=== PATIENT | female | born 1960 | race Caucasian/White ===

== ENCOUNTER 2018-04-06 18:09 | Observation (INO) | payer MEDICAID ==
[~2018-04-06] VITALS: Ht 162.6 cm; Wt 57.4 kg
[2018-04-06 18:53] LABS: EOS # 0.1 (0.04-0.40); EOS % 1.1 % (1.0-5.0); HEMOGLOBIN 14.3 g/dL (12.5-16.0); MEAN CELL VOLUME 91 fl (78-100); MEAN CORPUSCULAR HEMOGLOBIN 32 pg (27-31); MEAN CORPUSCULAR HGB CONC 36 g/dL (33-37); MEAN PLATELET VOLUME 10.4 fl (7.4-10.4); NEU # 5.6 (1.40-6.50); PLATELET COUNT 397 K/mm3 (130-400); RED BLOOD COUNT 4.42 M/mm3 (4.10-5.30); RED CELL DISTRIBUTION WIDTH 12.8 % (11.5-14.5); WHITE BLOOD COUNT 9.7 K/mm3 (4.8-10.8)
[2018-04-06 19:05] LABS: POTASSIUM 3.3 mmol/L (3.6-5.0)
[2018-04-06] MEDS ORDERED: DESYREL50 MG (19:05)
[2018-04-06 19:06] LABS: CALCIUM 9.9 mg/dL (8.4-10.2)
[2018-04-06] MEDS ORDERED: MOBIC7.5 MG (19:06)
[2018-04-06] MEDS ORDERED: KLONOPIN 1MG1 MG (19:06)
[2018-04-06] MEDS ORDERED: RT SPIRIVA INH18 MCG IH (19:08)
[2018-04-06] MEDS ORDERED: PROAIR HFA0.09 MG/AC IH (19:08)
[2018-04-06] MEDS ORDERED: DULCOLAX STOOL100 M1 PO (19:09)
[2018-04-06] MEDS ORDERED: IPRATROPIUM BROM3 M1 IH (19:09)
[2018-04-06 20:50] VITALS: BP 127/84
[2018-04-06] MEDS ORDERED: DOCUSATE SOD100 MG PO (20:55)
[2018-04-06] MEDS ORDERED: MELOXICAM15 MG PO (20:56)
[2018-04-06] MEDS ORDERED: ASPIR LOW81 MG PO (20:56)
[2018-04-06] MEDS ORDERED: DALIRESP250 MCG PO (20:57)
[2018-04-06] MEDS ORDERED: THEOPHYLLINE A200 M1 PO (20:57)
[2018-04-06] MEDS ORDERED: NEURONTIN300 MG/CAP PO (20:58)
[2018-04-06] MEDS ORDERED: ADVAIR DISKUS1 DS1 IH (20:59)
[2018-04-06] MEDS ORDERED: MAXZIDE-25MG TA1 TAB PO (21:01)
[2018-04-06] MEDS ORDERED: TIZANIDINE HYDRO4 MG PO (21:02)
[2018-04-06] MEDS ORDERED: VENLAFAXINE HC100 MG PO (21:03)
[2018-04-06] MEDS ORDERED: PREDNISONE 5MG5 MG PO (22:56)
[2018-04-06] MEDS ORDERED: SIMVASTATIN40 M1 PO (22:56)
[2018-04-06] MEDS ORDERED: OXYCODONE PO (22:58)
[2018-04-06] MEDS ORDERED: LEADER MELATONIN5 MG PO (22:58)
[2018-04-06] MEDS ORDERED: LAMICTAL 25MG T25 MG PO (22:59)
[2018-04-06 23:07] VITALS: BP 122/67
[2018-04-06] MEDS ORDERED: ASPIRIN E.C. 8181 MG (23:25)
[2018-04-07 06:18] VITALS: BP 104/63
[2018-04-07 08:37] VITALS: BP 128/70
[2018-04-07 11:20] VITALS: BP 98/58
[2018-04-07 13:32] VITALS: BP 95/61
== END 2018-04-07 15:51 | disposition home or self-care (01) ==
LOC: ED 18:09 → MED/SURG 20:20
PROVIDERS: ADMIT Nurse Practitioner Family
DX: J44.9 Chronic obstructive pulmonary disease, unspecified (principal); F41.9 Anxiety disorder, unspecified; E87.6 Hypokalemia; Z76.0 Encounter for issue of repeat prescription; K21.9 Gastro-esophageal reflux disease without esophagitis; F32.9 Major depressive disorder, single episode, unspecified; Z87.820 Personal history of traumatic brain injury; G81.91 Hemiplegia, unspecified affecting right dominant side; I10 Essential (primary) hypertension; Z79.82 Long term (current) use of aspirin; Z79.899 Other long term (current) drug therapy; F17.210 Nicotine dependence, cigarettes, uncomplicated
CPT/HCPCS: G0378; J1885; J7512

== ENCOUNTER 2018-06-17 09:46 | Emergency (ER) | payer MEDICAID ==
[~2018-06-17 09:46] MED LIST: ADVAIR DISKUS1 DS1 IH; ASPIR LOW81 MG PO; ASPIRIN E.C. 8181 MG; DALIRESP250 MCG PO; DESYREL50 MG; DOCUSATE SOD100 MG PO; DULCOLAX STOOL100 M1 PO; IPRATROPIUM BROM3 M1 IH; KLONOPIN 1MG1 MG; LAMICTAL 25MG T25 MG PO; LEADER MELATONIN5 MG PO; MAXZIDE-25MG TA1 TAB PO; MELOXICAM15 MG PO; MOBIC7.5 MG; NEURONTIN300 MG/CAP PO; OXYCODONE PO; PREDNISONE 5MG5 MG PO; PROAIR HFA0.09 MG/AC IH; RT SPIRIVA INH18 MCG IH; SIMVASTATIN40 M1 PO; THEOPHYLLINE A200 M1 PO; TIZANIDINE HYDRO4 MG PO; VENLAFAXINE HC100 MG PO
[2018-06-17 11:43] VITALS: BP 143/84
== END 2018-06-17 11:43 | disposition home or self-care (01) ==
LOC: ED 09:46
DX: S20.211A Contusion of right front wall of thorax, initial encounter (principal); S80.211A Abrasion, right knee, initial encounter; W01.0XXA Fall on same level from slipping, tripping and stumbling without subsequent striking against object, initial encounter; Y92.009 Unspecified place in unspecified non-institutional (private) residence as the place of occurrence of the external cause

== ENCOUNTER 2018-07-07 13:58 | Emergency (ER) | payer MEDICAID ==
[~2018-07-07] VITALS: Ht 162.6 cm; Wt 58.3 kg
[2018-07-07 14:03] VITALS: BP 138/84
[2018-07-07 14:50] LABS: ACETAMINOPHEN < 4 ug/mL (10-30)
[2018-07-07 14:51] LABS: ALCOHOL IN-HOUSE < 10 mg/dL
[2018-07-07 15:51] LABS: EOS # 0.2 (0.04-0.40); EOS % 1.7 % (1.0-5.0); HEMATOCRIT 41.3 % (37.0-47.0); HEMOGLOBIN 14.7 g/dL (12.5-16.0); MEAN CELL VOLUME 89 fl (78-100); MEAN CORPUSCULAR HEMOGLOBIN 32 pg (27-31); MEAN CORPUSCULAR HGB CONC 36 g/dL (33-37); MEAN PLATELET VOLUME 11.4 fl (7.4-10.4); MONO # 0.7 (0.20-0.80); NEU # 5.7 (1.40-6.50); PLATELET COUNT 411 K/mm3 (130-400); RED BLOOD COUNT 4.65 M/mm3 (4.10-5.30); RED CELL DISTRIBUTION WIDTH 12.5 % (11.5-14.5); WHITE BLOOD COUNT 8.6 K/mm3 (4.8-10.8)
[2018-07-07 15:57] LABS: ALBUMIN 4.5 g/dL (3.5-5.0); CALCIUM 10.2 mg/dL (8.4-10.2); POTASSIUM 3.6 mmol/L (3.6-5.0); TOTAL BILIRUBIN 0.7 mg/dL (0.2-1.3); TOTAL PROTEIN 7.4 g/dL (6.3-8.2)
[2018-07-07] MEDS ORDERED: AZITHROMYCIN 250MGPK PO (18:12)
[2018-07-07] MEDS ORDERED: PREDNISONE20 MG PO (18:12)
== END 2018-07-07 18:59 | disposition home or self-care (01) ==
LOC: ED 13:58
PROVIDERS: Nurse Practitioner Primary Care
DX: J44.1 Chronic obstructive pulmonary disease with (acute) exacerbation (principal); F32.9 Major depressive disorder, single episode, unspecified; F41.9 Anxiety disorder, unspecified; F17.200 Nicotine dependence, unspecified, uncomplicated; Z79.899 Other long term (current) drug therapy; Z79.82 Long term (current) use of aspirin; Z79.52 Long term (current) use of systemic steroids
CPT/HCPCS: J2930

== ENCOUNTER → 2018-08-27 | Outpatient (CLI) | payer MEDICAID ==
[~2018-08-27] MED LIST changes: +AZITHROMYCIN 250MGPK PO; +PREDNISONE20 MG PO
== END ==
LOC: MAMMO 08-26 13:00
DX: Z12.13 Encounter for screening for malignant neoplasm of small intestine (principal)

== ENCOUNTER → 2018-09-29 | Day surgery (SDC) | payer MEDICAID | LOC: MSO 08:58 | DX: Z12.11 Encounter for screening for malignant neoplasm of colon (principal); D12.5 Benign neoplasm of sigmoid colon; D12.0 Benign neoplasm of cecum; I10 Essential (primary) hypertension; J44.9 Chronic obstructive pulmonary disease, unspecified; K21.9 Gastro-esophageal reflux disease without esophagitis; F32.9 Major depressive disorder, single episode, unspecified; F41.9 Anxiety disorder, unspecified; E78.5 Hyperlipidemia, unspecified; M19.90 Unspecified osteoarthritis, unspecified site; G47.00 Insomnia, unspecified | CPT/HCPCS: 00811; J2704; J7120 ==

== ENCOUNTER 2018-11-10 14:42 | Emergency (ER) | payer MEDICAID ==
[2018-11-10 15:33] LABS: EOS # 0.2 (0.04-0.40); EOS % 2.6 % (1.0-5.0); HEMATOCRIT 38.7 % (37.0-47.0); HEMOGLOBIN 13.5 g/dL (12.5-16.0); LYMPH# 1.6 (1.50-4.00); MEAN CELL VOLUME 91 fl (78-100); MEAN CORPUSCULAR HEMOGLOBIN 32 pg (27-31); MEAN CORPUSCULAR HGB CONC 35 g/dL (33-37); MEAN PLATELET VOLUME 11.4 fl (7.4-10.4); MONO # 0.6 (0.20-0.80); NEU # 4.9 (1.40-6.50); PLATELET COUNT 132 K/mm3 (130-400); RED BLOOD COUNT 4.24 M/mm3 (4.10-5.30); RED CELL DISTRIBUTION WIDTH 12.5 % (11.5-14.5); WHITE BLOOD COUNT 7.4 K/mm3 (4.8-10.8)
[2018-11-10 15:48] LABS: ALBUMIN 3.9 g/dL (3.5-5.0); CALCIUM 10.4 mg/dL (8.4-10.2); POTASSIUM 4.1 mmol/L (3.5-5.1); TOTAL BILIRUBIN 0.6 mg/dL (0.2-1.2); TOTAL PROTEIN 6.9 g/dL (6.4-8.3)
[2018-11-10] MEDS ORDERED: VIBRAMYCIN HYC100 MG PO ×2 (16:39→16:40)
[2018-11-10] MEDS ORDERED: NORCO 325 MG-51 TA1 PO (17:54)
[2018-11-10] MEDS ORDERED: ZOFRAN4 M2 PO (17:54)
[2018-11-10 18:06] VITALS: BP 120/70
== END 2018-11-10 18:10 | disposition home or self-care (01) ==
LOC: ED 14:42
PROVIDERS: Nurse Practitioner Primary Care
DX: R11.0 Nausea (principal); R10.84 Generalized abdominal pain; E78.5 Hyperlipidemia, unspecified; I10 Essential (primary) hypertension; F41.9 Anxiety disorder, unspecified; F32.9 Major depressive disorder, single episode, unspecified; K21.9 Gastro-esophageal reflux disease without esophagitis; J44.9 Chronic obstructive pulmonary disease, unspecified; Z87.81 Personal history of (healed) traumatic fracture; Z90.89 Acquired absence of other organs; Z98.51 Tubal ligation status; Z86.73 Personal history of transient ischemic attack (TIA), and cerebral infarction without residual deficits
CPT/HCPCS: J2270; J2405

== ENCOUNTER 2018-11-13 13:42 | Observation (INO) | payer MEDICAID ==
[~2018-11-13] VITALS: Ht 162.6 cm; Wt 55.7 kg
[~2018-11-13 13:42] MED LIST changes: +NORCO 325 MG-51 TA1 PO; +VIBRAMYCIN HYC100 MG PO; +ZOFRAN4 M2 PO
[2018-11-13 14:19] LABS: EOS # 0.1 (0.04-0.40); EOS % 1.1 % (1.0-5.0); HEMATOCRIT 39.4 % (37.0-47.0); HEMOGLOBIN 13.8 g/dL (12.5-16.0); LYMPH# 2.1 (1.50-4.00); MEAN CELL VOLUME 90 fl (78-100); MEAN CORPUSCULAR HEMOGLOBIN 31 pg (27-31); MEAN CORPUSCULAR HGB CONC 35 g/dL (33-37); MEAN PLATELET VOLUME 10.7 fl (7.4-10.4); MONO # 0.9 (0.20-0.80); NEU # 5.2 (1.40-6.50); PLATELET COUNT 240 K/mm3 (130-400); RED CELL DISTRIBUTION WIDTH 12.9 % (11.5-14.5); WHITE BLOOD COUNT 8.2 K/mm3 (4.8-10.8)
[2018-11-13 14:42] LABS: ALBUMIN 4.2 g/dL (3.5-5.0); CALCIUM 10.4 mg/dL (8.4-10.2); POTASSIUM 3.4 mmol/L (3.5-5.1); TOTAL BILIRUBIN 0.7 mg/dL (0.2-1.2)
[2018-11-13 15:17] LABS: URINE APPEARANCE HAZY; URINE COLOR YELLOW
[2018-11-13 15:20] LABS: URINE BILIRUBIN NEGATIVE (NEGATIVE); URINE BLOOD TRACE (NEGATIVE); URINE GLUCOSE NEGATIVE (NEGATIVE); URINE KETONE NEGATIVE (NEGATIVE); URINE LEUKOCYTE ESTERASE NEGATIVE (NEGATIVE); URINE NITRATE NEGATIVE (NEGATIVE); URINE PROTEIN(semi-quant) TRACE mg/dL (NEGATIVE); URINE UROBILINOGEN NORMAL (NORMAL)
[2018-11-13 15:21] LABS: URINE MUCUS PRESENT (NOT PRESENT)
[2018-11-13 19:14] VITALS: BP 138/78
[2018-11-13 20:44] VITALS: BP 138/78
[2018-11-13 23:04] VITALS: BP 121/64
[2018-11-14 02:49] VITALS: BP 102/65
[2018-11-14 06:25] VITALS: BP 110/64
[2018-11-14 11:07] VITALS: BP 137/80
[2018-11-14 14:58] VITALS: BP 136/74
[2018-11-14] MEDS ORDERED: MACROBID 100 M100 MG PO (15:13)
[2018-11-14] MEDS ORDERED: CULTURELLE1 EACH PO (15:13)
[2018-11-14] MEDS ORDERED: PROTONIX TR40 M1 PO (15:13)
[2018-11-14] MEDS ORDERED: KLONOPIN 0.5MG0.5 MG PO (15:13)
[2018-11-14] MEDS ORDERED: ZOFRAN ODT4 MG PO (15:15)
== END 2018-11-14 17:10 | disposition home or self-care (01) ==
LOC: ED 13:42 → MED/SURG 16:56
PROVIDERS: ADMIT Nurse Practitioner Family
DX: K21.9 Gastro-esophageal reflux disease without esophagitis (principal); F32.9 Major depressive disorder, single episode, unspecified; F41.9 Anxiety disorder, unspecified; J44.9 Chronic obstructive pulmonary disease, unspecified; N39.0 Urinary tract infection, site not specified; Z79.82 Long term (current) use of aspirin; Z79.51 Long term (current) use of inhaled steroids; Z86.010 Personal history of colon polyps; I10 Essential (primary) hypertension; Z86.73 Personal history of transient ischemic attack (TIA), and cerebral infarction without residual deficits; F17.210 Nicotine dependence, cigarettes, uncomplicated
CPT/HCPCS: G0378; J2270; J2405

== ENCOUNTER 2018-11-16 09:33 | Emergency (ER) | payer MEDICAID ==
[~2018-11-16] VITALS: Ht 162.6 cm; Wt 56.4 kg
[~2018-11-16 09:33] MED LIST changes: +CULTURELLE1 EACH PO; +KLONOPIN 0.5MG0.5 MG PO; +MACROBID 100 M100 MG PO; +PROTONIX TR40 M1 PO; +ZOFRAN ODT4 MG PO
[2018-11-16 09:34] VITALS: BP 144/83
[2018-11-16 10:41] LABS: EOS # 0.1 (0.04-0.40); EOS % 1.8 % (1.0-5.0); HEMATOCRIT 38.9 % (37.0-47.0); HEMOGLOBIN 13.6 g/dL (12.5-16.0); LYMPH# 1.6 (1.50-4.00); MEAN CELL VOLUME 90 fl (78-100); MEAN CORPUSCULAR HEMOGLOBIN 32 pg (27-31); MEAN CORPUSCULAR HGB CONC 35 g/dL (33-37); MEAN PLATELET VOLUME 10.4 fl (7.4-10.4); MONO # 0.4 (0.20-0.80); NEU # 5.6 (1.40-6.50); PLATELET COUNT 226 K/mm3 (130-400); RED BLOOD COUNT 4.31 M/mm3 (4.10-5.30); RED CELL DISTRIBUTION WIDTH 12.8 % (11.5-14.5); WHITE BLOOD COUNT 7.9 K/mm3 (4.8-10.8)
[2018-11-16 11:01] LABS: ALBUMIN 3.9 g/dL (3.5-5.0); ALT/SGPT 15 U/L (0-55); AST-SGOT 16 U/L (5-34); CARBON DIOXIDE 26 mmol/L (22-29); GLUCOSE 98 mg/dL (65-105); LIPASE 22 U/L (8-78); POTASSIUM 3.6 mmol/L (3.5-5.1); SODIUM 138 mmol/L (136-145); TOTAL BILIRUBIN 0.8 mg/dL (0.2-1.2); TOTAL PROTEIN 6.4 g/dL (6.4-8.3)
[2018-11-16 11:03] LABS: ACETAMINOPHEN < 1 ug/mL; ALCOHOL IN-HOUSE < 10 mg/dL (<10)
[2018-11-16 11:30] LABS: URINE APPEARANCE HAZY; URINE BILIRUBIN NEGATIVE (NEGATIVE); URINE BLOOD NEGATIVE (NEGATIVE); URINE COLOR YELLOW; URINE GLUCOSE NEGATIVE (NEGATIVE); URINE KETONE NEGATIVE (NEGATIVE); URINE LEUKOCYTE ESTERASE NEGATIVE (NEGATIVE); URINE MUCUS PRESENT (NOT PRESENT); URINE NITRATE NEGATIVE (NEGATIVE); URINE PROTEIN(semi-quant) NEGATIVE (NEGATIVE); URINE UROBILINOGEN NORMAL (NORMAL)
== END 2018-11-16 13:59 | disposition home or self-care (01) ==
LOC: ED 09:33
PROVIDERS: Family Medicine
DX: F41.9 Anxiety disorder, unspecified (principal); R10.9 Unspecified abdominal pain; J44.9 Chronic obstructive pulmonary disease, unspecified; F32.9 Major depressive disorder, single episode, unspecified; F17.210 Nicotine dependence, cigarettes, uncomplicated; Z98.51 Tubal ligation status; Z87.81 Personal history of (healed) traumatic fracture; Z90.89 Acquired absence of other organs

== ENCOUNTER 2018-11-17 13:20 | Emergency (ER) | payer MEDICAID ==
[~2018-11-17] VITALS: Ht 162.6 cm; Wt 58.2 kg
[2018-11-17 14:29] LABS: EOS # 0.1 (0.04-0.40); EOS % 1.2 % (1.0-5.0); HEMATOCRIT 39.7 % (37.0-47.0); HEMOGLOBIN 13.8 g/dL (12.5-16.0); MEAN CELL VOLUME 89 fl (78-100); MEAN CORPUSCULAR HEMOGLOBIN 31 pg (27-31); MEAN CORPUSCULAR HGB CONC 35 g/dL (33-37); MEAN PLATELET VOLUME 10.7 fl (7.4-10.4); MONO # 0.6 (0.20-0.80); NEU # 5.6 (1.40-6.50); PLATELET COUNT 227 K/mm3 (130-400); RED BLOOD COUNT 4.44 M/mm3 (4.10-5.30); RED CELL DISTRIBUTION WIDTH 12.8 % (11.5-14.5); WHITE BLOOD COUNT 8.3 K/mm3 (4.8-10.8)
[2018-11-17 14:51] LABS: ALBUMIN 4.1 g/dL (3.5-5.0); ALT/SGPT 16 U/L (0-55); AST-SGOT 15 U/L (5-34); CALCIUM 10.3 mg/dL (8.4-10.2); CARBON DIOXIDE 25 mmol/L (22-29); GLUCOSE 88 mg/dL (65-105); POTASSIUM 3.4 mmol/L (3.5-5.1); SODIUM 140 mmol/L (136-145); TOTAL BILIRUBIN 0.8 mg/dL (0.2-1.2); TOTAL PROTEIN 6.6 g/dL (6.4-8.3)
[2018-11-17 14:52] LABS: ACETAMINOPHEN < 1 ug/mL; ALCOHOL IN-HOUSE < 10 mg/dL (<10)
[2018-11-17 15:26] LABS: URINE APPEARANCE HAZY; URINE COLOR YELLOW; URINE GLUCOSE NEGATIVE (NEGATIVE); URINE KETONE NEGATIVE (NEGATIVE); URINE PROTEIN(semi-quant) NEGATIVE (NEGATIVE)
[2018-11-17 15:27] LABS: URINE BILIRUBIN NEGATIVE (NEGATIVE); URINE BLOOD NEGATIVE (NEGATIVE); URINE LEUKOCYTE ESTERASE NEGATIVE (NEGATIVE); URINE NITRATE NEGATIVE (NEGATIVE); URINE UROBILINOGEN NORMAL (NORMAL)
[2018-11-17 15:28] LABS: URINE MUCUS PRESENT (NOT PRESENT); URINE WBC 0-1 /hpf (0-3)
[2018-11-17 17:23] VITALS: BP 158/102
== END 2018-11-17 17:23 | disposition home or self-care (01) ==
LOC: ED 13:20
PROVIDERS: Nurse Practitioner
DX: F39 Unspecified mood [affective] disorder (principal); I10 Essential (primary) hypertension; F41.9 Anxiety disorder, unspecified; F32.9 Major depressive disorder, single episode, unspecified; G89.29 Other chronic pain; M54.5 Low back pain; M19.90 Unspecified osteoarthritis, unspecified site; F17.210 Nicotine dependence, cigarettes, uncomplicated; Z86.73 Personal history of transient ischemic attack (TIA), and cerebral infarction without residual deficits; Z90.89 Acquired absence of other organs; Z98.890 Other specified postprocedural states; Z79.82 Long term (current) use of aspirin; Z79.51 Long term (current) use of inhaled steroids

== ENCOUNTER 2019-05-03 12:16 | Emergency (ER) | payer MEDICAID ==
[~2019-05-03] VITALS: Ht 162.6 cm; Wt 56.4 kg
[2019-05-03] MEDS ORDERED: DICLOFENAC SOD100 GM TP (13:14)
[2019-05-03] MEDS ORDERED: ALLEGRA ALLERG180 MG PO (13:21)
[2019-05-03] MEDS ORDERED: PROTONIX TR40 M1 PO (13:24)
[2019-05-03] MEDS ORDERED: DESYREL 100MG100 MG PO (13:25)
[2019-05-03] MEDS ORDERED: VENLAFAXINE HCL75 M3 PO (13:27)
[2019-05-03] MEDS ORDERED: IBU600 MG PO (13:28)
[2019-05-03] MEDS ORDERED: PHENERGAN 25 TA25 MG PO (13:28)
[2019-05-03 14:25] VITALS: BP 124/78
== END 2019-05-03 14:28 | disposition home or self-care (01) ==
LOC: ED 12:16
DX: M25.571 Pain in right ankle and joints of right foot (principal); J44.9 Chronic obstructive pulmonary disease, unspecified; F17.210 Nicotine dependence, cigarettes, uncomplicated; Z98.890 Other specified postprocedural states; W18.30XA Fall on same level, unspecified, initial encounter; X50.1XXA Overexertion from prolonged static or awkward postures, initial encounter; Y92.129 Unspecified place in nursing home as the place of occurrence of the external cause

== ENCOUNTER 2019-06-16 15:12 | Emergency (ER) | payer MEDICAID ==
[~2019-06-16] VITALS: Wt 60.1 kg
[~2019-06-16 15:12] MED LIST changes: +ALLEGRA ALLERG180 MG PO; +DESYREL 100MG100 MG PO; +DICLOFENAC SOD100 GM TP; +IBU600 MG PO; +PHENERGAN 25 TA25 MG PO; +VENLAFAXINE HCL75 M3 PO
[2019-06-16] MEDS ORDERED: DALIRESP500 MCG PO (15:19)
[2019-06-16 16:14] VITALS: BP 131/69
== END 2019-06-16 16:11 ==
LOC: ED 15:12
DX: M79.604 Pain in right leg (principal); J44.9 Chronic obstructive pulmonary disease, unspecified; F41.9 Anxiety disorder, unspecified; F32.9 Major depressive disorder, single episode, unspecified; F17.210 Nicotine dependence, cigarettes, uncomplicated; Z79.1 Long term (current) use of non-steroidal anti-inflammatories (NSAID); Z79.82 Long term (current) use of aspirin

== ENCOUNTER → 2019-06-29 | Outpatient (CLI) | payer MEDICAID ==
[2019-06-16 16:14] VITALS: BP 131/69
[~2019-06-29] MED LIST changes: +DALIRESP500 MCG PO
== END ==
LOC: RAD 08:53
DX: K80.20 Calculus of gallbladder without cholecystitis without obstruction (principal); R91.1 Solitary pulmonary nodule; R97.0 Elevated carcinoembryonic antigen [CEA]; Z85.038 Personal history of other malignant neoplasm of large intestine
CPT/HCPCS: Q9967

== ENCOUNTER → 2019-11-05 | Outpatient (CLI) | payer MEDICAID ==
[2019-08-10 16:34] VITALS: BP 144/76
[~2019-11-05] MED LIST changes: -ASPIR LOW81 MG PO; +ASPIRIN E.C. 8181 MG PO; +CEFUROXIME AXE500 MG PO; +NARCAN4 MG NAS; +NORCO 325 MG-7.1 TA1 PO; +PREDNISONE20 M1 PO; -THEOPHYLLINE A200 M1 PO; +THEOPHYLLINE400 M1 PO; -VENLAFAXINE HC100 MG PO
[2019-11-05 12:01] LABS: EOS # 0.1 (0.04-0.40); EOS % 2.1 % (1.0-5.0); HEMATOCRIT 39.4 % (37.0-47.0); HEMOGLOBIN 13.2 g/dL (12.5-16.0); LYMPH# 1.8 (1.50-4.00); MEAN CELL VOLUME 90 fl (78-100); MEAN CORPUSCULAR HEMOGLOBIN 30 pg (27-31); MEAN CORPUSCULAR HGB CONC 34 g/dL (33-37); MEAN PLATELET VOLUME 10.4 fl (7.4-10.4); MONO # 0.5 (0.20-0.80); NEU # 3.6 (1.40-6.50); PLATELET COUNT 251 K/mm3 (130-400); RED BLOOD COUNT 4.37 M/mm3 (4.10-5.30); RED CELL DISTRIBUTION WIDTH 13.6 % (11.5-14.5); WHITE BLOOD COUNT 6.1 K/mm3 (4.8-10.8)
[2019-11-05 12:06] LABS: URINE APPEARANCE CLEAR; URINE BILIRUBIN NEGATIVE (NEGATIVE); URINE BLOOD TRACE (NEGATIVE); URINE COLOR YELLOW; URINE GLUCOSE NEGATIVE (NEGATIVE); URINE KETONE NEGATIVE (NEGATIVE); URINE LEUKOCYTE ESTERASE TRACE (NEGATIVE); URINE NITRATE NEGATIVE (NEGATIVE); URINE PROTEIN(semi-quant) TRACE mg/dL (NEGATIVE); URINE UROBILINOGEN NORMAL (NORMAL)
[2019-11-05 12:07] LABS: URINE MUCUS PRESENT (NOT PRESENT)
[2019-11-05 12:09] LABS: ALBUMIN 4.2 g/dL (3.5-5.0)
[2019-11-05 12:10] LABS: POTASSIUM 4.2 mmol/L (3.5-5.1)
[2019-11-05 12:11] LABS: CALCIUM 9.6 mg/dL (8.3-10.5)
[2019-11-05 12:12] LABS: TOTAL PROTEIN 6.7 g/dL (6.4-8.3)
[2019-11-05 12:14] LABS: TOTAL BILIRUBIN 0.4 mg/dL (0.2-1.2)
== END ==
LOC: LAB 11:44
PROVIDERS: Family Medicine
DX: R41.0 Disorientation, unspecified (principal)